=== PATIENT | male | born 1970 | race Caucasian/White ===

== ENCOUNTER 2019-04-11 16:02 | Emergency (ER) | payer OTHER ==
[2019-04-11 16:09] VITALS: BP 126/74
[2019-04-11] MEDS ORDERED: FAMOTIDINE 20 MG TABLET PO ONE (16:55)
[2019-04-11] MEDS ORDERED: METHYLPREDNISOLONE INJ 125 MG/2 ML SDV IM ONE (16:55)
[2019-04-11] MEDS ORDERED: DIPHENHYDRAMINE HCL 50 MG CAPSULE PO ONE (16:55)
--- NOTE | 2019-04-11 17:00 | ER Document Report ---
HPI - HPI Time Seen by Provider: 04/11/19 16:51 Pain Level: 3 Notes: Patient is a 49-year-old male with a history of mental health disorders who presents complaining of yellowjacket stings x2-3 to the left dorsal hand 2 days ago. Patient states that he has had continued swelling and a burning sensation since then. He has not noticed any purulence, abscess, streaks. He is eating and drinking without difficulty. No other concerns or complaints. Denies any headache, fever,neck pain, hoarseness, drooling, swelling of the lip/tongue/throat, URI, sore throat, chest pain, palpitations, syncope, cough, shortness of breath, wheeze, dyspnea, abdominal pain, nausea/vomiting/diarrhea, urinary retention, dysuria, hematuria, loss of control of bowel or bladder, numbness/tingling, muscle paralysis/weakness, or rash. - ROS Systems Reviewed and Negative: Yes All other systems reviewed and negative Past Medical History - Social History Smoking Status: Never Smoker Family History: Reviewed & Not Pertinent Vertical Provider Document - CONSTITUTIONAL Agree With Documented VS: Yes Notes: PHYSICAL EXAMINATION: GENERAL: Well-appearing, well-nourished and in no acute distress. A&Ox4. Answers questions appropriately. Moves comfortably w/o notable distress HEAD: Atraumatic, normocephalic. EYES: Pupils equal round and reactive to light, extraocular movements intact, sclera anicteric, conjunctiva are normal. ENT: Nares patent and without discharge. oropharynx no erythema without exudates. No tonsilar hypertrophy without erythema or exudate. No palatine shift. Uvula midline. No tongue protrusion. No drooling, hoarseness, or airwa y compromise. Moist mucous membranes. No sinus tenderness. No angioedema. NECK: Normal range of motion, supple without lymphadenopathy. No rigidity/meningismus. LUNGS: Breath sounds clear to auscultation bilaterally and equal. No wheezes rales or rhonchi. No retractions HEART: Regular rate and rhythm without murmurs, rubs, gallops. ABDOMEN: Soft, nontender, nondistended abdomen. No guarding, no rebound. Normal bowel sounds present. No CVA tenderness bilaterally. Lt Hand: + mild erythema and swelling dorsal hand with 2-3 small scabs where stingers were. No significant warmth. No fluctuance, streaks, or purulence noted. Non-tender. No bony tenderness. N/V intact distal. NEUROLOGICAL: Normal speech, normal gait. PSYCH: Normal mood, normal affect. SKIN: see above - INFECTION CONTROL TRAVEL OUTSIDE OF THE [place] IN LAST 30 DAYS: No Course - Re-evaluation Re-evalutation: 04/11/19 16:58 Patient is an afebrile, well-hydrated, 49-year-old male who presents to the ED with left hand pain/histamine reaction after being stung. Vitals are acceptable without any significant tachycardia, tachypnea, or hypoxia. PE is otherwise unremarkable for any neurovascular compromise, obvious tendon/ligament rupture, obvious fracture/dislocation, septic joint. Pt give solumedrol, pepcid, and benadryl. No other labs or imaging warranted at this time based on H&P. I will send him home with prescription for steroids for a few days as well as an antibiotic that he may begin with cellulitis/infection. Conservative measures otherwise for symptoms. Recheck with your PCM in 3-5 days. Consider consult orthopedics. Return to the ED with any worsening/concerning symptoms otherwise as reviewed in discharge. Patient is in agreement. - Vital Signs Vital signs: Temp Pulse Resp BP Pulse Ox 98.5 F 84 14 126/74 H 93 04/11/19 16:07 04/11/19 16:07 04/11/19 16:07 04/11/19 16:07 04/11/19 16:07 Discharge - Discharge Clinical Impression: Insect sting Qualifiers: Encounter type: initial encounter Injury intent: accidental or unintentional Qualified Code(s): T63.481A - Toxic effect of venom of other arthropod, accidental (unintentional), initial encounter Condition: Stable Disposition: HOME, SELF-CARE Instructions: Swollen Insect Bite or Sting ([facility]) Additional Instructions: Keep the skin clean ice and elevate Wash with soap and water Tylenol/ibuprofen if needed Triple antibiotic ointment daily Take medication as directed Monitor for any worsening symptoms Recheck with your PCM in 3-5 days Return to the ED with any worsening symptoms and/or development of fever, headache, chest pain, palpitations, syncope, shortness of breath, trouble breathing, abdominal pain, n/v/d, abscess, purulent discharge, red streaks, worsening swelling, or other worsening symptoms that are concerning to you. Prescriptions: Cephalexin Monohydrate [Keflex 500 mg Capsule] 500 mg PO TID #21 capsule Prednisone [Deltasone 20 mg Tablet] 3 tab PO DAILY 3 Days tablet Forms: Elevated Blood Pressure Referrals: [facility] [Provider Group] - Follow up as needed
== END 2019-04-11 17:20 | disposition home or self-care (01) ==
LOC: ER 16:02
DX: T63.461A Toxic effect of venom of wasps, accidental (unintentional), initial encounter (principal)
CPT/HCPCS: 99282; 96372; J2930